=== PATIENT | male | born 1985 | race Caucasian/White ===

== ENCOUNTER 2024-11-17 02:28 | Emergency (ER) | payer SELFPAY ==
[~2024-11-17] VITALS: Ht 182.9 cm; Wt 104.0 kg
[2024-11-17 02:37] VITALS: O2SAT 96
[2024-11-17] MEDS ORDERED: TETANUS, DIPHTHERIA, PERTUSSIS VAC/PF 0.5ML (>10YR OLD) IM ONE (03:00)
[2024-11-17] MEDS ORDERED: LIDOCAINE HCL 1% 20ML VIAL INFIL ONE (03:00)
[2024-11-17] MEDS: ACETAMINOPHEN 500MG TABLET PO ONE (04:57)
[2024-11-17] MEDS: TETANUS, DIPHTHERIA, PERTUSSIS VAC/PF 0.5ML (>10YR OLD) IM ONE (05:02)
[2024-11-17] MEDS: LIDOCAINE HCL 1% 20ML VIAL INFIL NR (05:03)
[2024-11-17] MEDS ORDERED: NAPR-1176 MT (05:33)
[2024-11-17] MEDS ORDERED: LIDO-53 TP (05:33)
[2024-11-17 05:52] VITALS: BP 111/67; PULSE 103; RESP 16; TEMP 36.7; O2SAT 99
== END 2024-11-17 05:54 | disposition home or self-care (01) ==
LOC: ER 02:50
DX: S02.85XA Fracture of orbit, unspecified, initial encounter for closed fracture (principal); S02.80XA Fracture of other specified skull and facial bones, unspecified side, initial encounter for closed fracture; Z79.1 Long term (current) use of non-steroidal anti-inflammatories (NSAID); Y08.89XA Assault by other specified means, initial encounter; Y93.89 Activity, other specified; Y92.89 Other specified places as the place of occurrence of the external cause; Y99.8 Other external cause status
CPT/HCPCS: 99284; 70450; 70486; J2003; 90715